=== PATIENT | female | born 1955 | race Caucasian/White ===

== ENCOUNTER 2022-07-28 17:38 | Emergency (ER) | payer OTHER ==
[~2022-07-28] VITALS: Ht 170.2 cm; Wt 135.6 kg
[2022-07-28 17:38] VITALS: BP_SYST 180
[2022-07-28] MEDS ORDERED: TETRACAINE HCL/PF 0.5% OPHTHALMIC DROPS 4 ML OP ONE (19:00)
[2022-07-28] MEDS ORDERED: DIPHTH,PERTUSS(ACELL),TET VAC 0.5 ML VIAL (Tdap) I.M. ONE (19:00)
--- NOTE | 2022-07-28 19:20 | NUR ---
ER in triage examining patient.
[2022-07-28] MEDS ORDERED: AUG875 PO (20:07)
[2022-07-28] MEDS ORDERED: PRED20TA PO (20:07)
[2022-07-28] MEDS ORDERED: SULF15DR6 LEFT EYE (20:07)
[2022-07-28 20:26] VITALS: BP_SYST 130
--- NOTE | 2022-07-28 20:27 | NUR ---
Pt C/O of left eye pain Pt DC per MD DC instructions and medications given to pt Pt verbalized understanding VSS Able to make needs known NAD at this time Pt Exited ED in stable gait
== END 2022-07-28 20:26 | disposition home or self-care (01) ==
LOC: SED 17:38
DX: S05.02XA Injury of conjunctiva and corneal abrasion without foreign body, left eye, initial encounter (principal); J40 Bronchitis, not specified as acute or chronic; R05.9 Cough, unspecified; E11.9 Type 2 diabetes mellitus without complications; I10 Essential (primary) hypertension; Z79.899 Other long term (current) drug therapy; X58.XXXA Exposure to other specified factors, initial encounter; Y93.89 Activity, other specified; Y92.89 Other specified places as the place of occurrence of the external cause; Y99.8 Other external cause status
CPT/HCPCS: 71045; 99283